=== PATIENT | female | born 1950 | race Caucasian/White ===

== ENCOUNTER 2018-06-15 14:08 | Outpatient (CLI) | payer MEDICARE, OTHER ==
[2018-06-15 18:32] LABS: T4 (THYROXINE) 8.53 ug/dL (6.09-12.23)
[2018-06-15 18:36] LABS: THYROID STIMULATING HORMONE 1.31 uIU/mL (0.34-5.60)
== END 2018-06-15 14:09 | disposition home or self-care (01) ==
LOC: LAB.F 14:08
PROVIDERS: ATTEND Naturopath
DX: Z01.411 Encounter for gynecological examination (general) (routine) with abnormal findings (principal); E03.9 Hypothyroidism, unspecified; R53.82 Chronic fatigue, unspecified
CPT/HCPCS: 36415; 84436; 84443; 84481